=== PATIENT | female | born 1980 | race Caucasian/White ===

== ENCOUNTER 2017-02-14 18:21 | Emergency (ER) | payer OTHER ==
[2017-02-14 20:17] VITALS: BP 126/69
--- NOTE | 2017-02-14 20:38 | UC ---
FLU HPI - HPI Summary HPI Summary: complaint of nasal congestion and fever that started yesterday daughter with influenza denies fever 8 months called [facility] who sent her to be tested - already has rx for tamiflu - History of Current Complaint Chief Complaint: UCRespiratory Stated Complaint: COUGH Time Seen by Provider: 02/14/17 20:36 Hx Obtained From: Patient - Allergy/Home Medications Allergies/Adverse Reactions: Allergies Allergy/AdvReac Type Severity Reaction Status Date / Time Penicillins Allergy Hives Verified 02/14/17 20:13 PMH/Surg Hx/FS Hx/Imm Hx Previously Healthy: Yes - 8 months - Surgical History Surgical History: None - Family History Known Family History: Negative: Cardiac Disease, Hypertension, Diabetes - Social History Occupation: Employed Full-time Lives: With Family Alcohol Use: None Substance Use Type: None Smoking Status (MU): Never Smoked Tobacco - Immunization History Most Recent Influenza Vaccination: 2015 Most Recent Tetanus Shot: UTD Most Recent Pneumonia Vaccination: NONE Review of Systems Constitutional: Fever Skin: Negative Eyes: Negative ENT: Negative Respiratory: Cough Cardiovascular: Negative Gastrointestinal: Negative Genitourinary: Negative Motor: Negative Neurovascular: Negative Musculoskeletal: Negative Neurological: Negative Psychological: Negative All Other Systems Reviewed And Are Negative: Yes Physical Exam Triage Information Reviewed: Yes Appearance: No Pain Distress, Well-Nourished Vital Signs: Initial Vital Signs Temp 98.5 F 02/14/17 20:14 Pulse 105 02/14/17 20:14 Resp 18 02/14/17 20:14 BP 126/69 02/14/17 20:14 Pulse Ox 98 02/14/17 20:14 Vital Signs Reviewed: Yes Eyes: Positive: Conjunctiva Clear ENT: Positive: Pharyngeal erythema, Nasal congestion, Nasal drainage, TMs normal Neck: Positive: No Lymphadenopathy Respiratory: Positive: Lungs clear, Normal breath sounds, No respiratory distress, No accessory muscle use Cardiovascular: Positive: RRR, No Murmur, Pulses Normal Abdomen Description: Positive: Distended Bowel Sounds: Positive: Present Musculoskeletal: Positive: No Edema Neurological: Positive: Alert Psychological Exam: Normal Skin Exam: Normal Flu Course/Dx - Differential Dx/Diagnosis Differential Diagnosis/HQI/PQRI: Influenza Provider Diagnoses: influenza Discharge - Discharge Plan Condition: Stable Disposition: HOME Patient Education Materials: Influenza (ED) Referrals: No Primary Care Phys,NOPCP [Medical Doctor] - Additional Instructions: please contact your [employer] provider for further instructions for your care. Take acetaminophen for fever or pain Please review your discharge instructions. If your symptoms do not improve please call your primary care provider or return to urgent care
== END 2017-02-14 20:46 | disposition home or self-care (01) ==
LOC: UCEAST 18:21
DX: O26.893 Other specified pregnancy related conditions, third trimester (principal); J11.1 Influenza due to unidentified influenza virus with other respiratory manifestations; Z3A.00 Weeks of gestation of pregnancy not specified; Z88.0 Allergy status to penicillin
CPT/HCPCS: 99211; G0463

== ENCOUNTER 2017-02-21 12:06 | Inpatient (IN) | payer OTHER ==
[2017-02-21 12:50] LABS: Hematocrit 42 % (35-47); Hemoglobin 14.1 g/dl (12.0-16.0); Mean Corpuscular HGB Conc 34 g/dl (31-36); Mean Corpuscular Hemoglobin 30 pg (27-31); Mean Corpuscular Volume 90 fL (80-97); Mean Platelet Volume 8 um3 (7.4-10.4); Red Blood Count 4.65 10^6/ul (4.0-5.4); Red Cell Distribution Width 13 % (10.5-15); White Blood Count 12.1 10^3/ul (3.5-10.8)
[2017-02-21] MEDS ORDERED: Witch Hazel PAD* JAR TOPICAL PRN (13:04)
[2017-02-21] MEDS ORDERED: Dibucaine 1% 28.35 GM TUBE PR PRN (13:04)
[2017-02-21] MEDS ORDERED: OXYTOCIN* 10 UNITS/ML 1 ML VIAL IM ONE (13:04)
[2017-02-21] MEDS ORDERED: guaiFENesin/CODIEN 100MG-10MG* 5 ML UDC PO PRN (16:23)
[2017-02-21] MEDS ORDERED: Simethicone CHEW TAB* 80 MG PO SCH (17:30)
[2017-02-21] MEDS: Ibuprofen TAB* 600 MG PO PRN ×2 (17:46→23:51)
[2017-02-21] MEDS: GuaiFENesin DM* 5 ML UDC PO PRN (17:47)
[2017-02-21] MEDS: Docusate CAP* 100 MG PO SCH (23:51)
[2017-02-22] MEDS: GuaiFENesin DM* 5 ML UDC PO PRN ×3 (05:48→20:40)
[2017-02-22] MEDS: Ibuprofen TAB* 600 MG PO PRN ×3 (05:48→20:40)
[2017-02-22 07:55] LABS: Hematocrit 39 % (35-47); Hemoglobin 13.2 g/dl (12.0-16.0); Mean Corpuscular HGB Conc 34 g/dl (31-36); Mean Corpuscular Hemoglobin 31 pg (27-31); Mean Corpuscular Volume 90 fL (80-97); Mean Platelet Volume 7 um3 (7.4-10.4); Red Blood Count 4.31 10^6/ul (4.0-5.4); Red Cell Distribution Width 13 % (10.5-15); White Blood Count 10.5 10^3/ul (3.5-10.8)
[2017-02-22] MEDS: Docusate CAP* 100 MG PO SCH ×2 (08:57→20:40)
[2017-02-22] MEDS: Acetaminophen TAB* 325 MG PO PRN (17:03)
[2017-02-23] MEDS: Acetaminophen TAB* 325 MG PO PRN ×2 (00:14→05:51)
[2017-02-23] MEDS: GuaiFENesin DM* 5 ML UDC PO PRN ×2 (02:41→11:12)
[2017-02-23] MEDS: Ibuprofen TAB* 600 MG PO PRN (02:41)
[2017-02-23] MEDS: Docusate CAP* 100 MG PO SCH (07:56)
[2017-02-23 08:59] VITALS: BP 108/67
== END 2017-02-23 11:48 | disposition home or self-care (01) | DRG 774 ==
LOC: MCHOBOUT 12:06 → MCHOB 12:14
PROVIDERS: ADMIT Obstetrics & Gynecology; ATTEND Obstetrics & Gynecology
PROC: 4A1HX4Z Monitoring of Products of Conception, Cardiac Electrical Activity, External Approach (ICD-10-PCS; principal; 2017-02-21)
PROC: 10E0XZZ Delivery of Products of Conception, External Approach (ICD-10-PCS; 2017-02-21)
PROC: 0W8NXZZ Division of Female Perineum, External Approach (ICD-10-PCS; 2017-02-21)
DX: O34.219 Maternal care for unspecified type scar from previous cesarean delivery (principal); O86.89 Other specified puerperal infections; J01.90 Acute sinusitis, unspecified; Z88.0 Allergy status to penicillin; Z3A.38 38 weeks gestation of pregnancy; Z37.0 Single live birth; O09.523 Supervision of elderly multigravida, third trimester
CPT/HCPCS: 36415; 85025; 85027; A9270-GY; J2590

== ENCOUNTER 2018-11-16 08:18 | Emergency (ER) | payer OTHER ==
[2018-11-16 08:26] VITALS: BP 115/67
--- NOTE | 2018-11-16 09:09 | UC ---
Respiratory Complaint HPI - HPI Summary HPI Summary: 2 weeks of sore throat, cough and congestion. No fever, nausea/vomiting. - History of Current Complaint Chief Complaint: UCRespiratory Stated Complaint: SORE THROAT Time Seen by Provider: 11/16/18 08:49 Hx Obtained From: Patient Hx Last Menstrual Period: iud Onset/Duration: Gradual Onset, Lasting Weeks, Still Present Timing: Constant Severity Initially: Mild Severity Currently: Mild Pain Intensity: 4 Pain Scale Used: 0-10 Numeric Character: Cough: Nonproductive Aggravating Factors: Nothing Alleviating Factors: Nothing Associated Signs And Symptoms: Positive: URI, Nasal Congestion. Negative: Dyspnea, Fever, Chills, Wheezing, Hoarseness - Allergies/Home Medications Allergies/Adverse Reactions: Allergies Allergy/AdvReac Type Severity Reaction Status Date / Time Penicillins Allergy Hives Verified 11/16/18 08:22 Home Medications: Home Medications NK [No Home Medications Reported] 11/16/18 [History Confirmed 11/16/18] PMH/Surg Hx/FS Hx/Imm Hx Previously Healthy: Yes - Surgical History Surgical History: Yes Surgery Procedure, Year, and Place: c/sec - Family History Known Family History: Negative: Cardiac Disease, Hypertension, Diabetes - Social History Alcohol Use: Daily Substance Use Type: None Smoking Status (MU): Never Smoked Tobacco - Immunization History Most Recent Influenza Vaccination: 09/2016 Most Recent Tetanus Shot: UTD Most Recent Pneumonia Vaccination: NONE Review of Systems All Other Systems Reviewed And Are Negative: Yes Constitutional: Positive: Negative ENT: Positive: Sore Throat, Nasal Discharge Respiratory: Positive: Cough Cardiovascular: Positive: Negative Gastrointestinal: Positive: Negative Physical Exam Triage Information Reviewed: Yes Appearance: Well-Appearing, No Pain Distress, Well-Nourished Vital Signs: Initial Vital Signs Temp 97.6 F 11/16/18 08:23 Pulse 79 11/16/18 08:23 Resp 16 11/16/18 08:23 BP 115/67 11/16/18 08:23 Pulse Ox 100 11/16/18 08:23 Laboratory Tests 11/16/18 08:36 Group A Strep Rapid Negative Vital Signs Reviewed: Yes Eyes: Positive: Conjunctiva Clear ENT: Positive: Hearing grossly normal, Pharynx normal, TMs normal Neck: Positive: Supple, Nontender, Enlarged Nodes @ - SPFL CERVICAL LAD RIGHT SIDE Respiratory Exam: Normal Cardiovascular Exam: Normal Abdomen Description: Positive: Soft Musculoskeletal: Positive: No Edema Neurological: Positive: Alert Psychological: Positive: Age Appropriate Behavior Skin: Negative: Rashes UC Diagnostic Evaluation - Laboratory O2 Sat by Pulse Oximetry: 100 Respiratory Course/Dx - Differential Dx/Diagnosis Provider Diagnosis: Upper respiratory infection Discharge - Sign-Out/Discharge Documenting (check all that apply): Patient Departure All imaging exams completed and their final reports reviewed: No Studies - Discharge Plan Condition: Stable Disposition: HOME Patient Education Materials: Upper Respiratory Infection (ED) Referrals: Ton Pretty MD [Primary Care Provider] - If Needed Additional Instructions: STREP TEST NEGATIVE. YOUR SYMPTOMS ARE LIKELY VIRALLY MEDIATED AND SHOULD RESOLVE ON THEIR OWN WITH TIME. NO INDICATION FOR ANTIBIOTICS AT PRESENT. REST, HYDRATE, OTC MEDS NEEDED. SEEK FOLLOW-UP IF YOU ARE NOT IMPROVING OVER THE NEXT 1-2 WEEKS. - Billing Disposition and Condition Condition: STABLE Disposition: Home
== END 2018-11-16 09:07 | disposition home or self-care (01) ==
LOC: UCEAST 08:18
DX: J02.9 Acute pharyngitis, unspecified (principal); J06.9 Acute upper respiratory infection, unspecified; Z88.0 Allergy status to penicillin
CPT/HCPCS: 87651; 99211; G0463